=== PATIENT | female | born 1980 | race African-American/Black ===

== ENCOUNTER 2022-01-26 20:37 | Emergency (ER) | payer BC, OTHER ==
[~2022-01-26] VITALS: Ht 170.2 cm; Wt 78.0 kg
[2022-01-26] MEDS ORDERED: ACETAMINOPHEN 500MG TABLET PO ONE (21:00)
[2022-01-26] MEDS ORDERED: ONDANSETRON 4MG ODT PO ONE (21:45)
[2022-01-26] MEDS ORDERED: HYDROCODONE/ACETAMINOPHEN 5/325MG TABLET PO ONE (21:45)
[2022-01-26 22:06] VITALS: BP 151/88
== END 2022-01-26 22:23 | disposition home or self-care (01) ==
LOC: ER 20:37
DX: M25.562 Pain in left knee (principal)
CPT/HCPCS: 73560; 99283; Q0162